=== PATIENT | female | born 1975 | race African-American/Black ===

== ENCOUNTER 2016-08-14 13:33 | Emergency (ER) | payer OTHER ==
[2016-08-14 13:52] VITALS: BP 124/65
[2016-08-14] MEDS ORDERED: IBUPROFEN 800 MG TABLET PO ONE (15:03)
--- NOTE | 2016-08-14 15:08 | ER Document Report ---
ED Fall - General Chief Complaint: Fall Stated Complaint: FALL BACK AND HEAD PAIN Time seen by provider: 15:03 Mode of Arrival: Ambulatory Information source: Patient Notes: 40-year-old female presents to ED for pain in her head neck and back since she fell yesterday. She states she was going down her steps to take her son to school yesterday morning and slipped off of the wet step and fell backwards landing on her back in her head. She denies any loss of consciousness nausea vomiting or altered mental status. She is alert and oriented at this time able to speak in full sentences TRAVEL OUTSIDE OF THE [place] IN LAST 30 DAYS: No - HPI Occurred: Yesterday Where: Home, Outdoors Context: Slipped - Wet steps Associated symptoms: None Location of injury/pain: Back, Head Quality of pain: Achy, Sharp, Throbbing Severity: Moderate Pain Level: 4 - Related data Allergies/Adverse Reactions: No Known Allergies Allergy (Verified 08/14/16 13:49) Past Medical History - General Information source: Patient - Social History Smoking Status: Current Every Day Smoker Cigarette use (# per day): Yes - pack per day Smoking Education Provided: Yes - less than 2 minutes Frequency of alcohol use: None Drug Abuse: None Occupation: works at [employer] with: Family Family History: Arthritis, CAD, CVA, Hyperlipidemia, Hypertension, Malignancy, Thyroid Disfunction Patient has suicidal ideation: No Patient has homicidal ideation: No - Past Medical History Cardiac Medical History: Reports: None Pulmonary Medical History: Reports: None EENT Medical History: Reports: None Neurological Medical History: Reports: None Endocrine Medical History: Reports: None Renal/ Medical History: Reports: Hx Kidney Stones, Hx Ovarian Cysts, Other - Endometriosis Malignancy Medical History: Reports: None GI Medical History: Reports: None Musculoskeltal Medical History: Reports None Skin Medical History: Reports None Psychiatric Medical History: Reports: None Traumatic Medical History: Reports: None Infectious Medical History: Reports: None Past Surgical History: Reports: Hx Cholecystectomy, Hx Hysterectomy, Other - Removal of pilonidal cyst - Immunizations Hx Diphtheria, Pertussis, Tetanus Vaccination: No Review of Systems - Review of Systems Constitutional: No symptoms reported EENT: No symptoms reported Cardiovascular: No symptoms reported Respiratory: No symptoms reported Gastrointestinal: No symptoms reported Genitourinary: No symptoms reported Female Genitourinary: No symptoms reported Musculoskeletal: No symptoms reported Skin: No symptoms reported Hematologic/Lymphatic: No symptoms reported Neurological/Psychological: No symptoms reported -: Yes All other systems reviewed and negative Physical Exam - Vital signs Vitals: Temp Pulse Resp BP Pulse Ox 97.6 F 83 20 124/65 97 08/14/16 13:51 08/14/16 13:51 08/14/16 13:51 08/14/16 13:51 08/14/16 13:51 Interpretation: Normal - General General appearance: Appears well, Alert - HEENT Head: Normocephalic, Atraumatic Eyes: Normal Pupils: PERRL - Respiratory Respiratory status: No respiratory distress Chest status: Nontender Breath sounds: Normal Chest palpation: Normal - Cardiovascular Rhythm: Regular Heart sounds: Normal auscultation Murmur: No - Abdominal Inspection: Normal Distension: No distension Bowel sounds: Normal Tenderness: Nontender Organomegaly: No organomegaly - Back Back: Normal, Tender. No: Deformity/step-off, CVA tenderness, Vertebra tenderness, Scars, Scoliosis, Wounds - Extremities General upper extremity: Normal inspection, Nontender, Normal color, Normal ROM , Normal temperature General lower extremity: Normal inspection, Nontender, Normal color, Normal ROM , Normal temperature, Normal weight bearing. No: Ashley's sign - Neurological Neuro grossly intact: Yes Cognition: Normal Orientation: AAOx4 [employer] Coma Scale Eye Opening: Spontaneous [employer] Coma Scale Verbal: Oriented Mita Coma Scale Motor: Obeys Commands Mita Coma Scale Total: 15 Speech: Normal Motor strength normal: LUE, RUE, LLE, RLE Sensory: Normal - Psychological Associated symptoms: Normal affect, Normal mood - Skin Skin Temperature: Warm Skin Moisture: Dry Skin Color: Normal Course - Re-evaluation Re-evalutation: 08/14/16 16:06 X-rays discussed with the patient and written report given to patient for follow -up with her primary doctor. Patient will be discharged home with prescription for Needles and instructions on ice and heat packs and back exercises. - Vital Signs Vital signs: Temp Pulse Resp BP Pulse Ox 97.6 F 83 20 124/65 97 08/14/16 13:51 08/14/16 13:51 08/14/16 13:51 08/14/16 13:51 08/14/16 13:51 - Diagnostic Test Radiology reviewed: Image reviewed, Reports reviewed Discharge - Discharge Clinical Impression: Fall at home Qualifiers: Encounter type: initial encounter Qualified Code(s): W19.XXXA - Unspecified fall, initial encounter; Y92.099 - Unspecified place in other non-institutional residence as the place of occurrence of the external cause Contusion of back Qualifiers: Encounter type: initial encounter Laterality: unspecified laterality Qualified Code(s): S20.229A - Contusion of unspecified back wall of thorax, initial encounter Condition: Stable Disposition: HOME, SELF-CARE Instructions: Use of [id number] Ibuprofen ([facility]), Stretching Exercises for the Back ([facility]), Exercise Program for the Shoulder ([facility]), Family Physicians / Practices Additional Instructions: HEAD INJURY PRECAUTIONS: At this point, there is no evidence that your head injury is serious. Observation is necessary, however. Take only clear liquids for the first few hours, unless told otherwise by the doctor. If no pain medication was prescribed, you may take acetaminophen according to the directions on the bottle. Do not take any medication that may alter your level of alertness (unless you've discussed it with the doctor first) . Limit activity for the first 24 hours. Bed rest is best. During the first 24 hours, check to see approximately every two to three hours that the patient is easily arousable, responds normally, and can perform common tasks such as walking without difficulty. Contact your doctor or go to the hospital if any of the following things occur: Persistent vomiting, difficulty in arousing the patient, worsening or continued headache, or failure to improve as expected. Head injuries can cause symptoms that persist for a few days or even a few weeks. CONTUSION: Your injury has resulted in a contusion -- a crushing of the deep tissues. No injury to important structures was detected during the physician's exam. Contusions vary in the amount of pain they cause, and in the length of time required for healing. Typically, the area will become bruised, and will remain painful to touch for two or three weeks. However, most patients are back to working and playing within a few days. After the initial period of rest and cold-packs, your symptoms (together with the doctor's recommendations) will determine how rapidly you can get back to full activity. Usually this means "do what feels okay, but don't do things that hurt." If re-examination was recommended, it's important to follow up as instructed. Call the doctor or return any time if pain increases, if swelling becomes severe, if you develop numbness or weakness in an injured extremity, or if any other alarming symptoms occur. LOW BACK PAIN: Three out of every four people will have an episode of disabling back pain during their lifetime. Most commonly the pain is due to straining of the muscles and ligaments in the low back. Usual treatment includes: (1) Rest on a firm surface. Avoid lying on your stomach. (2) Ice pack the painful area. After a few days, gentle heat may be used intermittently to relax the area, or ice packs can be continued. (3) Medication may be needed -- muscle relaxers and antiinflammatory medicines are commonly used. (4) As the back improves, exercises are prescribed to strengthen the back and abdominal muscles. Your doctor will advise you on the proper care for your back at each stage in your recovery. You may be better in a few days -- or healing may take several weeks. If new symptoms of a "herniated disc" (radiation of pain, numbness, or tingling down the back of the leg or weakness in the leg) occur, you should be re-examined. Further testing may be necessary. USE OF TYLENOL (ACETAMINOPHEN): Acetaminophen may be taken for pain relief or fever control. It's much safer than aspirin, offering a wider range of "safe" dosages. It is safe during . Some brand names are Tylenol, Panadol, Datril, Anacin 3, Tempra, and Liquiprin. Acetaminophen can be repeated every four hours. The following are maximum recommended dosages: WEIGHT Dose Drops Elixir Chewable( 80mg) (LBS.) drprs=droppers tsp=teaspoon 6 40 mg 0.4 ml (1/2) 6-11 80 mg 0.8 ml (full) tsp 1 tab 12-16 120 mg 1 1/2 drprs 3/4 tsp 1 1/2 tabs 17-23 160 mg 2 drprs 1 tsp 2 tabs 24-30 240 mg 3 drprs 1 1/2 tsp 3 tabs 30-35 320 mg 2 tsp 4 tabs 36-41 360 mg 2 1/4 tsp 4 1/2 tabs 42-47 400 mg 2 1/2 tsp 5 tabs 48-53 480 mg 3 tsp 6 tabs 54-59 520 mg 3 1/4 tsp 6 1/2 tabs 60-64 560 mg 3 1/2 tsp 7 tabs 65-70 600 mg 3 3/4 tsp 7 1/2 tabs 71-76 640 mg 4 tsp 8 tabs 77-82 720 mg 4 1/2 tsp 9 tabs 83-88 800 mg 5 tsp 10 tabs >89 pounds or adults 650 mg to 900 mg Acetaminophen can be repeated every four hours. Maximum dose not to exceed 4000 mg a day. These maximum recommended dosages are slightly higher than the dosages written on the product container, but these dosages are very safe and below the toxic dosage for acetaminophen. ICE PACKS: Apply ice packs frequently against the painful area. Many different schedules are recommended, such as "20 minutes on, 20 minutes off" or "one hour ice, two hours rest." If you need to work, you may need to go longer between ice treatments. You should plan to have the area ice packed AT LEAST one fourth of the time. The ice should be applied over the wrap, tape, or splint, or over a layer of cloth -- not directly against the skin. Some ice bags have a built-in cloth and can be put directly on the skin. WARM PACKS: After approximately two days, apply gentle heat (such as a heating pad or hot water bottle) for about 20 to 30 minutes about every two hours -- at least four times daily. Warmth and elevation will help you make a more rapid recovery , and will ease the pain considerably. Do not use HOT heat, and never apply heat for longer than 30 minutes. The continuous heat can invisibly damage skin and muscles -- even when no burn is seen on the surface. Damaged muscles can make you MORE sore. ORAL NARCOTIC MEDICATION: You have been given a prescription for pain control. This medication is a narcotic. It's best taken with food, as nausea can result if taken on an empty stomach. Don't operate machinery or drive within six hours of taking this medication. Do not combine this medicine with alcohol, or with any medication which can cause sedation (such as cold tablets or sleeping pills) unless you get permission from the physician. Narcotics tend to cause constipation. If possible, drink plenty of fluids and eat a diet high in fiber and fruits. FOLLOW-UP CARE: If you have been referred to a physician for follow-up care, call the physician s office for an appointment as you were instructed or within the next two days. If you experience worsening or a significant change in your symptoms, notify the physician immediately or return to the Emergency Department at any time for re-evaluation. Prescriptions: Hydrocodone/Acetaminophen [Needles 5-325 mg Tablet] 1 tab PO Q6HP PRN #14 tablet PRN Reason: Cyclobenzaprine HCl [Flexeril 5 mg Tablet] 5 mg PO TID #15 tablet Forms: Smoking Cessation Education, Return to Work
== END 2016-08-14 16:24 | disposition home or self-care (01) ==
LOC: ER 13:33
DX: S20.229A Contusion of unspecified back wall of thorax, initial encounter (principal); W10.9XXA Fall (on) (from) unspecified stairs and steps, initial encounter; Y93.89 Activity, other specified; Y92.009 Unspecified place in unspecified non-institutional (private) residence as the place of occurrence of the external cause; R51 Headache; M54.9 Dorsalgia, unspecified; M54.2 Cervicalgia; F17.210 Nicotine dependence, cigarettes, uncomplicated; Z71.6 Tobacco abuse counseling
CPT/HCPCS: 72082; 99283

== ENCOUNTER 2017-12-07 11:18 | Emergency (ER) | payer OTHER ==
[2017-12-07] MEDS ORDERED: METOCLOPRAMIDE HCL INJ/PF 10 MG/2 ML SDV IV ONE (12:13)
[2017-12-07] MEDS ORDERED: NORMAL SALINE 1000 ML 1,000 ML IV ONE (12:13)
[2017-12-07] MEDS ORDERED: ONDANSETRON 4 MG TAB.RAPDIS PO ONE (12:13)
[2017-12-07] MEDS ORDERED: DIPHENHYDRAMINE HCL 50 MG/ML VIAL IV ONE (12:14)
--- NOTE | 2017-12-07 12:15 | ER Document Report ---
ED Medical Screen (RME) - General Chief Complaint: General Weakness Stated Complaint: WEAKNESS Time Seen by Provider: 12/07/17 12:12 Mode of Arrival: Ambulatory Information source: Patient Notes: This is a 42-year-old female with no significant medical problems who presents to the emergency room with nausea, vomiting, vertigo since this morning. Medicines: None Allergies: None Surgeries: Hysterectomy (for endometriosis). TRAVEL OUTSIDE OF THE [place] IN LAST 30 DAYS: No - Related Data Allergies/Adverse Reactions: No Known Allergies Allergy (Verified 12/07/17 11:19) Past Medical History - Social History Frequency of alcohol use: None Drug Abuse: None Family history: Reviewed & Not Pertinent Renal/ Medical History: Reports: Hx Kidney Stones, Hx Ovarian Cysts. Denies: Hx Peritoneal Dialysis Past Surgical History: Reports: Hx Cholecystectomy, Hx Hysterectomy, Other - Removal of pilonidal cyst - Immunizations Hx Diphtheria, Pertussis, Tetanus Vaccination: No Physical Exam - Vital signs Vitals: Temp Pulse Resp BP Pulse Ox 98.5 F 65 18 142/82 H 100 12/07/17 11:26 12/07/17 11:26 12/07/17 11:26 12/07/17 11:26 12/07/17 11:26 Course - Vital Signs Vital signs: Temp Pulse Resp BP Pulse Ox 98.5 F 65 18 142/82 H 100 12/07/17 11:26 12/07/17 11:26 12/07/17 11:26 12/07/17 11:26 12/07/17 11:26
[2017-12-07 13:03] LABS: ALANINE AMINOTRANSFERASE 20 U/L (9-52); ALBUMIN 4.5 g/dL (3.5-5.0); ALKALINE PHOSPHATASE 74 U/L (38-126); ANION GAP 13 (5-19); ASPARTATE AMINO TRANSFERASE 19 U/L (14-36); BILIRUBIN,DIRECT 0.3 mg/dL (0.0-0.4); BILIRUBIN,TOTAL 0.5 mg/dL (0.2-1.3); BLOOD UREA NITROGEN 9 mg/dL (7-20); CALCIUM 9.8 mg/dL (8.4-10.2); CARBON DIOXIDE 21 mmol/L (22-30); CHLORIDE 111 mmol/L (98-107); GLUCOSE 91 mg/dL (75-110); SODIUM 144.8 mmol/L (137-145)
[2017-12-07 13:04] LABS: ABSOLUTE BASOPHILS # (AUTO) 0.1 10^3/uL (0.0-0.2); ABSOLUTE LYMPHOCYTES (AUTO) 1.2 10^3/uL (0.5-4.7); ABSOLUTE MONOCYTES (AUTO) 0.2 10^3/uL (0.1-1.4); ABSOLUTE NEUT (AUTO) 4.2 10^3/uL (1.7-8.2); HEMATOCRIT 43.8 % (36.0-47.0); MONOCYTES % (AUTO) 3.6 % (3-13); TOTAL CELLS COUNTED % (AUTO) 100 %; WHITE BLOOD COUNT 5.7 10^3/uL (4.0-10.5)
[2017-12-07 13:11] LABS: BASOPHILS % (AUTO) 1.1 % (0-2); EOSINOPHILS % (AUTO) 0.5 % (0-6); HEMOGLOBIN 14.8 g/dL (12.0-15.5); LYMPHOCYTES % (AUTO) 21.5 % (13-45); MEAN CORPUSCULAR HGB CONC 33.8 g/dL (32.0-36.0); MEAN CORPUSCULAR VOLUME 83 fl (80-97); PLATELET COUNT 267 10^3/uL (150-450); RED BLOOD COUNT 5.28 10^6/uL (3.72-5.28); RED CELL DISTRIBUTION WIDTH 13.3 % (11.5-14.0); SEGMENTED NEUTROPHILS % (AUTO) 73.3 % (42-78)
--- NOTE | 2017-12-07 14:39 | ER Document Report ---
ED General - General Chief Complaint: General Weakness Stated Complaint: WEAKNESS Time Seen by Provider: 12/07/17 12:12 Mode of Arrival: Ambulatory TRAVEL OUTSIDE OF THE [place] IN LAST 30 DAYS: No - HPI Patient complains to provider of: Nausea and vomiting Onset: Other - 14-year-old female presents for evaluation of an episode of0 nausea and vomiting this morning. She notes that she was sitting in bed began to feel a little bit uncomfortable lightheaded short of breath at which time she stood up felt tremendous nausea and vomiting. She then had a very loose bowel movement. 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 - Related Data Allergies/Adverse Reactions: No Known Allergies Allergy (Verified 12/07/17 11:19) Past Medical History - General Information source: Patient - Social History Smoking Status: Current Every Day Smoker Frequency of alcohol use: None Drug Abuse: None Family History: Arthritis, CAD, CVA, Hyperlipidemia, Hypertension, Malignancy, Thyroid Disfunction Patient has suicidal ideation: No Patient has homicidal ideation: No Renal/ Medical History: Reports: Hx Kidney Stones, Hx Ovarian Cysts. Denies: Hx Peritoneal Dialysis Past Surgical History: Reports: Hx Cholecystectomy, Hx Hysterectomy, Other - Removal of pilonidal cyst - Immunizations Hx Diphtheria, Pertussis, Tetanus Vaccination: No Review of Systems - Review of Systems -: Yes All other systems reviewed and negative Physical Exam - Vital signs Vitals: Temp Pulse Resp BP Pulse Ox 98.5 F 65 18 142/82 H 100 12/07/17 11:26 12/07/17 11:26 12/07/17 11:26 12/07/17 11:26 12/07/17 11:26 - General General appearance: Appears well In distress: None - HEENT Head: Normocephalic Eyes: Normal Conjunctiva: Normal Cornea: Normal - Respiratory Respiratory status: No respiratory distress Chest status: Nontender Breath sounds: Normal Chest palpation: Normal - Cardiovascular Rhythm: Regular Heart sounds: Normal auscultation Murmur: No - Abdominal Inspection: Normal Distension: No distension - Back Back: Normal - Extremities General upper extremity: Normal inspection General lower extremity: Normal inspection - Neurological Neuro grossly intact: Yes Cognition: Normal Orientation: AAOx4 - Psychological Associated symptoms: Normal affect Course - Re-evaluation Re-evalutation: 12/07/17 19:42 [age]-year-old female presents for evaluation of single episode of emesis as well as some diarrhea. She notes that she had an episode of diarrhea single episode of emesis vomiting or systemic signs of action she now has no complaints says she feels generally well. She has been able to eat and drink since that episode , denies any lightheadedness chest pain systemic signs of infection recent illnesses. Her abdominal examination is entirely benign, she had labs drawn through triage which all are within normal limits. We will do p.o. challenge. Patient was able tolerate p.o. in the emergency department her abdominal examination remained benign. She was given return precautions encouraged follow -up with her primary physician regarding today's visit. At the time of discharge she was well-appearing. - Vital Signs Vital signs: Temp Pulse Resp BP Pulse Ox 97.8 F 63 16 122/61 100 12/07/17 15:05 12/07/17 15:05 12/07/17 15:05 12/07/17 15:05 12/07/17 15:05 - Laboratory Result Diagrams: 12/07/17 12:36 12/07/17 12:36 Laboratory results interpreted by me: 12/07/17 12:36 Chloride 111 H Carbon Dioxide 21 L Creatinine 0.47 L Discharge - Discharge Clinical Impression: Nausea & vomiting Qualifiers: Vomiting type: unspecified Vomiting Intractability: unspecified Qualified Code( s): R11.2 - Nausea with vomiting, unspecified Diarrhea Qualifiers: Diarrhea type: unspecified type Qualified Code(s): R19.7 - Diarrhea, unspecified Condition: Good Disposition: HOME, SELF-CARE Instructions: Diarrhea, Nonspecific ([facility]), Vomiting ([facility]) Prescriptions: Ondansetron [Zofran Odt 4 mg Tablet] 1 - 2 tab PO Q4H PRN #15 tab.rapdis PRN Reason: For Nausea/Vomiting Forms: Elevated Blood Pressure, Special Work Note, Smoking Cessation Education
[2017-12-07 15:10] VITALS: BP 122/61
== END 2017-12-07 15:10 | disposition home or self-care (01) ==
LOC: ER 11:18
DX: R11.2 Nausea with vomiting, unspecified (principal); R19.7 Diarrhea, unspecified; R42 Dizziness and giddiness; R06.02 Shortness of breath; F17.200 Nicotine dependence, unspecified, uncomplicated; Z90.49 Acquired absence of other specified parts of digestive tract
CPT/HCPCS: 99285; 96361; 96374; 96375; 36415; 85025; 80053; J1200; S0119; J2765; J7030

== ENCOUNTER 2018-10-26 08:14 | Emergency (ER) | payer OTHER ==
[2018-10-26 08:19] VITALS: BP 124/67
--- NOTE | 2018-10-26 09:42 | ER Document Report ---
ED General - General Chief Complaint: Arm Pain Stated Complaint: RIGHT ARM PAIN Time Seen by Provider: 10/26/18 08:57 Notes: Pleasant [id number] 43-year-old female with no medical history presents to the emergency department with chief length of distal right upper extremity swelling was a and pain. She said the pain has been present for about 1 month but it started swelling acutely over the last 2 to 3 days. She was concerned for the swelling and sought treatment in the emergency department. It was treated last patient has a family history of blood clots with her father and her paternal grandmother. Patient does not take oral contraceptives but is a smoker. She says that any movement causes pain, it hurts to make a fist, and generally has pain with movement. Brisk cap refill and 1+ radial pulse palpated. There is edema but no redness. No fevers or recent illness, no acute shortness of breath, racing heart or palpitations, chest pain. No other complaints TRAVEL OUTSIDE OF THE [place] IN LAST 30 DAYS: No - Related Data Allergies/Adverse Reactions: No Known Allergies Allergy (Verified 10/26/18 08:16) Past Medical History - Social History Smoking Status: Current Every Day Smoker Chew tobacco use (# tins/day): No Frequency of alcohol use: None Drug Abuse: None Family History: Arthritis, CAD, CVA, Hyperlipidemia, Hypertension, Malignancy, Thyroid Disfunction Patient has suicidal ideation: No Patient has homicidal ideation: No Renal/ Medical History: Reports: Hx Kidney Stones, Hx Ovarian Cysts. Denies: Hx Peritoneal Dialysis Past Surgical History: Reports: Hx Cholecystectomy, Hx Hysterectomy, Other - Removal of pilonidal cyst - Immunizations Hx Diphtheria, Pertussis, Tetanus Vaccination: No Review of Systems - Review of Systems Constitutional: See HPI EENT: No symptoms reported Cardiovascular: See HPI Respiratory: See HPI Gastrointestinal: No symptoms reported Genitourinary: No symptoms reported Female Genitourinary: No symptoms reported Musculoskeletal: See HPI Skin: No symptoms reported Hematologic/Lymphatic: No symptoms reported Neurological/Psychological: No symptoms reported Physical Exam - Vital signs Vitals: Temp Pulse Resp BP Pulse Ox 98.2 F 75 16 124/67 98 10/26/18 08:18 10/26/18 08:18 10/26/18 08:18 10/26/18 08:18 10/26/18 08:18 - Notes Notes: PHYSICAL EXAMINATION: Reviewed vital signs and charting by RN GENERAL: Alert, interacts well. No acute distress. HEAD: Normocephalic, atraumatic. EYES: Pupils equal and round. Extraocular movements intact. ENT: Oral mucosa moist, tongue midline. NECK: Full range of motion. Trachea midline. LUNGS: Clear to auscultation bilaterally, no wheezes, rales, or rhonchi. No respiratory distress. HEART: Regular rate and rhythm. No murmur ABDOMEN: soft, non-tender. No distention. Bowel sounds present EXTREMITIES: Moves all 4 extremities spontaneously. Distal right upper extremity edema with prominent swelling over the brachioradialis that does extend down to the wrist, brisk cap refill, 1+ radial pulse palpated, pain with ship fitter but 5/5 strength PSYCH: Normal affect, normal mood. SKIN: Warm, dry, normal turgor. No rashes or lesions noted. Course - Re-evaluation Re-evalutation: 10/26/18 09:41 Overall well-appearing. She is right-hand dominant and does have distal right upper extremity swelling I initially suspected this to be potentially a lipoma but she does have diffuse swelling from the elbow to the wrist so I am going to give both an ultrasound to assess the soft tissue and a venous Doppler to ensure that she does not have a blood clot because she has risk factors with a prominent family history and she is a smoker. 10/26/18 11:05 Venous Doppler negative for DVT. Still awaiting ultrasound results. Patient is reporting some pain so I ordered Motrin 600 mg once. 10/26/18 11:11 Ultrasound shows what I suspected to be a small lipoma over the brachioradialis region. I explained to patient that the pressure from this can cause pain. Overall everything is reassuring. Patient is stable for discharge at this time. - Vital Signs Vital signs: Temp Pulse Resp BP Pulse Ox 98.2 F 75 16 124/67 98 10/26/18 08:18 10/26/18 08:18 10/26/18 08:18 10/26/18 08:18 10/26/18 08:18 Discharge - Discharge Clinical Impression: Swelling of right upper extremity, Pain of right upper extremity Lipoma of arm Qualifiers: Laterality: right Qualified Code(s): D17.21 - Benign lipomatous neoplasm of skin and subcutaneous tissue of right arm Condition: Good Disposition: HOME, SELF-CARE Additional Instructions: You were seen in the emergency department this morning for pain and swelling of your right arm. All of the studies were very reassuring and you do not have a DVT and ultrasound showed that it is probably a lipoma which is a very small benign fatty tumor. Like we talked about this can cause pressure on the internal structures causing your pain. Please take Motrin 600 mg every 6 hours with food or milk and/or Tylenol 1000 mg every 6 hours for pain as needed. You can also keep your arm elevated, if you continue to have mild swelling like you do you can also get a compression stocking. If you develop worsening swelling, you get swelling of your whole arm, you have acute shortness of breath or chest pain, you are unable to feel your fingers or your arm goes numb, you are unable to use your right arm, you develop high fever, or you have any other concerning symptoms please immediately return to the emergency department.
[2018-10-26] MEDS ORDERED: IBUPROFEN 600 MG TABLET PO ONE (11:05)
--- NOTE | 2018-10-26 11:09 | RADIOLOGY REPORT (SQ) ---
EXAM DESCRIPTION: U/S EXTREMITY NONVASCULAR LTD COMPLETED DATE/TIME: 10/26/2018 10:25 am REASON FOR STUDY: RUE swelling distal extremity COMPARISON: None. TECHNIQUE: Static and real time gonzalez scale ultrasound Doppler spectral analysis, and color Doppler a cquired along the palpable abnormality right upper arm LIMITATIONS: None. FINDINGS: Please note that this study does not constitute an upper extremity venous Doppler exam. In the subcutaneous fat in the area of clinical palpable abnormality, a well-circumscribed area of sl ight increased echogenicity of the fat is present measuring 1.7 x 1.3 x 0.9 cm, likely a small lipoma . No abnormal intrinsic color flow. No significant mass effect. No calcifications. An area of fat necrosis could mimic this appearance. IMPRESSION: Lipoma versus fat necrosis correlates with the palpable abnormality right upper arm. TECHNICAL DOCUMENTATION: JOB ID: [id number] [employer]- All Rights Reserved Reading location - IP/workstation name: [email or web address]
--- NOTE | 2018-10-26 13:16 | XCELERA REPORT ---
[address] [address] Upper Extremity Venous Evaluation Name: BALDEV MIX Age: 43 yrs Gender: Female : 1975 Patient Status: Emergency Patient Location: ER Study Date: 10/26/2018 10:21 AM Procedure: Unilateral duplex scan of the right upper extremity veins was performed, including responses to compression and other maneuvers. Reason For Study: Right distal upper extremity swelling Ordering Physician: VERONICA ROBERSON Performed By: Kyle Monterroso Right Side Venous Evaluation Venous waveform is slurred, ,more prominent than usual. Normal vessel filling wall to wall, compression and augmentation as well as Colour flow down to the forearm veins. Interpretation Summary No duplex evidence of DVT or obstruction in the right upper extremity. : VERONICA ROBERSON > Bernardo Dumont
== END 2018-10-26 11:28 | disposition home or self-care (01) ==
LOC: ER 08:14
DX: M79.601 Pain in right arm (principal); R22.31 Localized swelling, mass and lump, right upper limb; D17.21 Benign lipomatous neoplasm of skin and subcutaneous tissue of right arm; F17.200 Nicotine dependence, unspecified, uncomplicated; Z90.49 Acquired absence of other specified parts of digestive tract; Z90.710 Acquired absence of both cervix and uterus; Z87.442 Personal history of urinary calculi
CPT/HCPCS: 76882; 93971; 99283

== ENCOUNTER 2018-11-07 15:37 | Emergency (ER) | payer OTHER ==
[2018-11-07 15:46] VITALS: BP 129/69
--- NOTE | 2018-11-07 15:55 | ER Document Report ---
ED Medical Screen (RME) - General Chief Complaint: Arm Pain Stated Complaint: RIGHT ARM PAIN Time Seen by Provider: 11/07/18 15:42 Mode of Arrival: Ambulatory Information source: Patient Notes: Patient is an otherwise healthy 43-year-old female presented to the emergency department chief complaint of multiple lumps to her body. Patient reports she was seen here approximately 2 weeks ago for right arm pain and diagnosed with a lipoma. She reports pain and swelling has worsened to this extremity. She denies history of DVTs or PEs. She reports that she has multiple areas that have lumps deep inside of her body. She does not know what this is from. She has just made appointment to establish primary care but they cannot get her in until December. Patient very tearful at the time of my evaluation stating that she is scared and she feels like something is very wrong. Patient denies any chest pain or shortness of breath. Exam: Mild swelling noted to right upper extremity from the elbow down to the wrist, palpable nodule noted to the upper arm. I have greeted and performed a rapid initial assessment of this patient. A comprehensive ED assessment and evaluation of the patient, analysis of test results and completion of the medical decision making process will be conducted by additional ED providers. I have specifically instructed the patient or family members with the patient to immediately return to any nursing staff should anything change in the patient's condition or with their chief complaint. This medical record was dictated with voice recognizing software. There may be grammatical, syntax errors that are unintended. TRAVEL OUTSIDE OF THE [place] IN LAST 30 DAYS: No - Related Data Allergies/Adverse Reactions: No Known Allergies Allergy (Verified 11/07/18 15:39) Past Medical History - Social History Family history: Reviewed & Not Pertinent Renal/ Medical History: Reports: Hx Kidney Stones, Hx Ovarian Cysts. Denies: Hx Peritoneal Dialysis Past Surgical History: Reports: Hx Cholecystectomy, Hx Hysterectomy, Other - Removal of pilonidal cyst - Immunizations Hx Diphtheria, Pertussis, Tetanus Vaccination: No Physical Exam - Vital signs Vitals: Temp Pulse Resp BP Pulse Ox 98.1 F 82 20 129/69 H 98 11/07/18 15:43 11/07/18 15:43 11/07/18 15:43 11/07/18 15:43 11/07/18 15:43 Course - Vital Signs Vital signs: Temp Pulse Resp BP Pulse Ox 98.1 F 82 20 129/69 H 98 11/07/18 15:43 11/07/18 15:43 11/07/18 15:43 11/07/18 15:43 11/07/18 15:43
[2018-11-07 16:46] LABS: ABSOLUTE BASOPHILS # (AUTO) 0.1 10^3/uL (0.0-0.2); ABSOLUTE EOSINOPHILS # (AUTO) 0.1 10^3/uL (0.0-0.6); ABSOLUTE LYMPHOCYTES (AUTO) 2.3 10^3/uL (0.5-4.7); ABSOLUTE MONOCYTES (AUTO) 0.3 10^3/uL (0.1-1.4); ABSOLUTE NEUT (AUTO) 2.6 10^3/uL (1.7-8.2); BASOPHILS % (AUTO) 1.3 % (0-2); HEMATOCRIT 41.1 % (36.0-47.0); HEMOGLOBIN 13.6 g/dL (12.0-15.5); MEAN CORPUSCULAR HEMOGLOBIN 27.4 pg (27.0-33.4); MEAN CORPUSCULAR HGB CONC 33.1 g/dL (32.0-36.0); MEAN CORPUSCULAR VOLUME 83 fl (80-97); MONOCYTES % (AUTO) 5.1 % (3-13); PLATELET COUNT 262 10^3/uL (150-450); RED BLOOD COUNT 4.96 10^6/uL (3.72-5.28); RED CELL DISTRIBUTION WIDTH 13.3 % (11.5-14.0); SEGMENTED NEUTROPHILS % (AUTO) 49.6 % (42-78); TOTAL CELLS COUNTED % (AUTO) 100 %; WHITE BLOOD COUNT 5.3 10^3/uL (4.0-10.5)
[2018-11-07 17:02] LABS: APPEARANCE,URINE CLEAR; BILIRUBIN,URINE NEGATIVE (NEGATIVE); COLOR,URINE YELLOW; GLUCOSE, URINE NEGATIVE (NEGATIVE); KETONES,URINE NEGATIVE (NEGATIVE); LEUKOCYTE ESTERASE,URINE NEGATIVE (NEGATIVE); NITRITE,URINE NEGATIVE (NEGATIVE); PROTEIN,URINE NEGATIVE (NEGATIVE); URINE SPECIFIC GRAVITY 1.027; UROBILINOGEN,URINE NEGATIVE mg/dL (<2.0)
[2018-11-07 17:10] LABS: ALANINE AMINOTRANSFERASE 29 U/L (9-52); ALBUMIN 4.4 g/dL (3.5-5.0); ALKALINE PHOSPHATASE 64 U/L (38-126); ANION GAP 8 (5-19); ASPARTATE AMINO TRANSFERASE 23 U/L (14-36); BILIRUBIN,DIRECT 0.2 mg/dL (0.0-0.4); BILIRUBIN,TOTAL 0.2 mg/dL (0.2-1.3); BLOOD UREA NITROGEN 15 mg/dL (7-20); CALCIUM 9.2 mg/dL (8.4-10.2); CARBON DIOXIDE 25 mmol/L (22-30); CHLORIDE 109 mmol/L (98-107); GLUCOSE 97 mg/dL (75-110); POTASSIUM 3.5 mmol/L (3.6-5.0); SODIUM 141.9 mmol/L (137-145); TOTAL PROTEIN 7.8 g/dL (6.3-8.2)
[2018-11-07] MEDS ORDERED: HYDROCODONE/ACETAMINOPHEN 5-325 MG TABLET PO ONE (19:25)
[2018-11-07] MEDS ORDERED: POTASSIUM CHLORIDE 10 MEQ CAPSULE.ER PO ONE (19:25)
--- NOTE | 2018-11-07 19:31 | ER Document Report ---
HPI - HPI Patient complains to provider of: Tender lumps Time Seen by Provider: 11/07/18 15:42 Onset: Other - Months Onset/Duration: Persistent Quality of pain: Achy Pain Level: 2 Context: Patient complains of tender lumps below the surface of her skin to the right for earm, posterior left thigh and to to her lower back area. Patient denies any fever. Patient complains of tenderness over the lesions. Patient states that nodule to right forearm causes pain when she is at work. Patient is right-hand dominant. Patient was seen here recently for this and had an ultrasound that suspected likely lipoma. Patient is concerned about possible cancer and wanted to be reevaluated. Associated Symptoms: Other - Under lumps under the skin Exacerbated by: Movement Relieved by: Denies Similar symptoms previously: No Recently seen / treated by doctor: Yes - ROS ROS below otherwise negative: Yes Systems Reviewed and Negative: Yes All other systems reviewed and negative - CONSTITUTIONAL Constitutional: DENIES: Fever, Chills - NEURO Neurology: DENIES: Headache, Weakness - RESPIRATORY Respiratory: DENIES: Trouble Breathing, Coughing - GASTROINTESTINAL Gastrointestinal: DENIES: Nausea, Patient vomiting - REPRODUCTIVE Reproductive: DENIES: : - MUSCULOSKELETAL Musculoskeletal: REPORTS: Extremity pain - DERM Skin Color: Normal Notes: Nodular lesions under skin Past Medical History - General Information source: Patient - Social History Smoking Status: Current Every Day Smoker Chew tobacco use (# tins/day): No Frequency of alcohol use: None Drug Abuse: None Occupation: Dietary Lives with: Family Family History: Arthritis, CAD, CVA, Hyperlipidemia, Hypertension, Malignancy, Thyroid Disfunction Patient has suicidal ideation: No Patient has homicidal ideation: No Renal/ Medical History: Reports: Hx Kidney Stones, Hx Ovarian Cysts. Denies: Hx Peritoneal Dialysis Past Surgical History: Reports: Hx Cholecystectomy, Hx Hysterectomy, Other - Removal of pilonidal cyst - Immunizations Hx Diphtheria, Pertussis, Tetanus Vaccination: No Vertical Provider Document - CONSTITUTIONAL Agree With Documented VS: Yes Exam Limitations: No Limitations General Appearance: WD/WN, No Apparent Distress - INFECTION CONTROL TRAVEL OUTSIDE OF THE [place] IN LAST 30 DAYS: No - HEENT HEENT: Atraumatic, Normocephalic - NECK Neck: Normal Inspection - RESPIRATORY Respiratory: Breath Sounds Normal, No Respiratory Distress - CARDIOVASCULAR Cardiovascular: Regular Rate, Regular Rhythm Pulses: Normal: Radial - BACK Back: Normal Inspection - MUSCULOSKELETAL/EXTREMETIES Musculoskeletal/Extremeties: MAEW, FROM, No Edema - NEURO Level of Consciousness: Awake, Alert, Appropriate Motor/Sensory: No Motor Deficit, No Sensory Deficit - DERM Integumentary: Warm, Dry, No Rash Adult Front & Back Diagram: 1 - 1 cm mobile tendern lesion, no overlying erythema 2 - Mobile nodular lesion 3 - Mobile nodular lesion 4 - Mobile nodular lesion Course - Re-evaluation Re-evalutation: 11/07/18 19:28 Patient with multiple 1 cm diameter mobile nodular lesions in the subcutaneous tissue, no overlying erythema or calor. No concern for abscess. Pt evaluated here recently for same and diagnosed with a lipoma. Patient encouraged to follow-up on outpatient basis with surgery for removal. 11/07/18 19:28 - Vital Signs Vital signs: Temp Pulse Resp BP Pulse Ox 98.1 F 82 20 129/69 H 98 11/07/18 15:43 11/07/18 15:43 11/07/18 15:43 11/07/18 15:43 11/07/18 15:43 - Laboratory Result Diagrams: 11/07/18 16:23 11/07/18 16:23 Laboratory results interpreted by me: 11/07/18 16:23 Potassium 3.5 L Chloride 109 H 11/08/18 02:01 Labs- Entire Visit 11/07/18 11/07/18 11/07/18 16:23 16:23 16:23 WBC 5.3 RBC 4.96 Hgb 13.6 Hct 41.1 MCV 83 MCH 27.4 MCHC 33.1 RDW 13.3 Plt Count 262 Seg Neutrophils % 49.6 Lymphocytes % 43.0 Monocytes % 5.1 Eosinophils % 1.0 Basophils % 1.3 Absolute Neutrophils 2.6 Absolute Lymphocytes 2.3 Absolute Monocytes 0.3 Absolute Eosinophils 0.1 Absolute Basophils 0.1 D-Dimer 0.27 Sodium 141.9 Potassium 3.5 L Chloride 109 H Carbon Dioxide 25 Anion Gap 8 BUN 15 Creatinine 0.62 Est GFR ( Amer) > 60 Est GFR (Non-Af Amer) > 60 Glucose 97 Calcium 9.2 Total Bilirubin 0.2 Direct Bilirubin 0.2 Neonat Total Bilirubin Not Reportable Neonat Direct Bilirubin Not Reportable Neonat Indirect Bili Not Reportable AST 23 ALT 29 Alkaline Phosphatase 64 Total Protein 7.8 Albumin 4.4 Urine Color Urine Appearance Urine pH Ur Specific [place] Urine Protein Urine Glucose (UA) Urine Ketones Urine Blood Urine Nitrite Urine Bilirubin Urine Urobilinogen Ur Leukocyte Esterase Urine WBC (Auto) Urine RBC (Auto) Squamous Epi Cells Auto Urine Mucus (Auto) Urine Ascorbic Acid 11/07/18 16:23 WBC RBC Hgb Hct MCV MCH MCHC RDW Plt Count Seg Neutrophils % Lymphocytes % Monocytes % Eosinophils % Basophils % Absolute Neutrophils Absolute Lymphocytes Absolute Monocytes Absolute Eosinophils Absolute Basophils D-Dimer Sodium Potassium Chloride Carbon Dioxide Anion Gap BUN Creatinine Est GFR ( Amer) Est GFR (Non-Af Amer) Glucose Calcium Total Bilirubin Direct Bilirubin Neonat Total Bilirubin Neonat Direct Bilirubin Neonat Indirect Bili AST ALT Alkaline Phosphatase Total Protein Albumin Urine Color YELLOW Urine Appearance CLEAR Urine pH 5.0 Ur Specific [place] 1.027 Urine Protein NEGATIVE Urine Glucose (UA) NEGATIVE Urine Ketones NEGATIVE Urine Blood NEGATIVE Urine Nitrite NEGATIVE Urine Bilirubin NEGATIVE Urine Urobilinogen NEGATIVE Ur Leukocyte Esterase NEGATIVE Urine WBC (Auto) 1 Urine RBC (Auto) 0 Squamous Epi Cells Auto 1 Urine Mucus (Auto) FEW Urine Ascorbic Acid NEGATIVE - Diagnostic Test Radiology reviewed: Reports reviewed - from previous ER visit Discharge - Discharge Clinical Impression: Subcutaneous nodule, Hypokalemia Condition: Stable Disposition: HOME, SELF-CARE Instructions: Growth or Mass, Pending Workup ([facility]), Hypokalemia ([facility]) Additional Instructions: Return immediately for any new or worsening symptoms Followup with your primary care provider, call tomorrow to make a followup appointment Follow-up with a general surgeon for further evaluation and removal. Prescriptions: Naproxen [Naprosyn 250 Nmg Tablet] 1 tab PO BID #14 tablet Forms: Return to Work Referrals: [facility] [Provider Group] - 11/10/18
== END 2018-11-07 19:49 | disposition home or self-care (01) ==
LOC: ER 15:37
DX: R22.2 Localized swelling, mass and lump, trunk (principal); R22.31 Localized swelling, mass and lump, right upper limb; R22.42 Localized swelling, mass and lump, left lower limb; E87.6 Hypokalemia; F17.200 Nicotine dependence, unspecified, uncomplicated; Z87.442 Personal history of urinary calculi; Z90.49 Acquired absence of other specified parts of digestive tract; Z90.710 Acquired absence of both cervix and uterus
CPT/HCPCS: 36415; 80053; 81001; 85025; 85379; 99283

== ENCOUNTER → 2019-01-30 | Outpatient (CLI) | payer OTHER ==
--- NOTE | 2019-01-30 13:59 | WOMENS IMAGING REPORT ---
EXAM DESCRIPTION: BONE DENSITY HIP/SPINE COMPLETED DATE/TIME: 01/30/2019 1:46 pm REASON FOR STUDY: E28.310 SYMPTOMATIC PREMATURE MENOPAUSE Z12.31 ENCNTR SCREEN MAMMOGRAM FOR MALIGN ANT NEOPLASM OF MINNIE E28.310 SYMPTOMATIC PREMATURE MENOPAUSE COMPARISON: None. TECHNIQUE: Dual-Energy X-ray Absorptiometry (DEXA) of the AP Spine and Hip. LIMITATIONS: None. FINDINGS: LUMBAR SPINE: The bone mineral density (BMD) measured from L1-L4 in the AP projection correlates with a T-score of -2.6, which is osteoporosis as defined by the World Health Organization. BMD Change vs Baseline: N/A HIP: The bone mineral density (BMD) measured in the left hip correlates with a T-score of -1.7 in the femo ral neck, which is osteopenia as defined by the World Health Organization. BMD Change vs Baseline: N/A 10 year Fracture Risk Assessment: Major Osteoporotic Fracture: Not available. Hip Fracture: Not available. IMPRESSION: 1. LUMBAR SPINE WHO CLASSIFICATION: Osteoporosis 2. HIP WHO CLASSIFICATION: Osteopenia OVERALL ASSESSMENT: WHO CLASSIFICATION: Osteopenia COMMENT: The World Health Organization defines low BMD as follows: T-score: Normal: Greater than -1.0 Osteopenia: Between -1.0 and -2.5 Osteoporosis: Less than -2.5 without fractures Established osteoporosis: Less than -2.5 with fractures In general, you may wish to consider: Diagnosis Treatment Follow-up DEXA Normal BMD Prevention 2-3 years Osteopenia Prevention/Therapy 1-2 years Osteoporosis Therapy Yearly TECHNICAL DOCUMENTATION: JOB ID: [id number] [employer]- All Rights Reserved Reading location - IP/workstation name: [email or web address]
--- NOTE | 2019-02-02 15:55 | WOMENS IMAGING REPORT ---
EXAM DESCRIPTION: BILAT SCREENING MAMMO W/CAD COMPLETED DATE/TIME: 01/30/2019 1:46 pm REASON FOR STUDY: Z12.31 ENCOUNTER FOR SCREENING MAMMOGRAM FOR MALIGNANT NEOPLASM OF BREAST Z12.31 ENCNTR SCREEN MAMMOGRAM FOR MALIGNANT NEOPLASM OF MINNIE E28.310 SYMPTOMATIC PREMATURE MENOPAUSE COMPARISON: None. EXAM PARAMETERS: Standard craniocaudal and mediolateral oblique views of each breast recorded using digital acquisition. Read with the assistance of CAD. .[facility] - [employer] Package [place] Version 9.2 LIMITATIONS: None. FINDINGS: No suspicious masses, suspicious calcifications or architectural distortion. No areas of c oncern. IMPRESSION: Negative MAMMOGRAM. BIRADS 1 BREAST DENSITY: b. There are scattered areas of fibroglandular density. BIRAD: ASSESSMENT: 1 NEGATIVE RECOMMENDATION: ROUTINE SCREENING COMMENT: The patient has been notified of the results by letter per MQSA requirements. Additional no tification policies are in place for contacting patient with suspicious or incomplete findings. Quality ID #[id number]: The [employer] recommends an annual screening mammogram for women aged 40 years or over. This facility utilizes a reminder system to ensure that all patients receive reminder letters, and/or direct phone calls for appointments. This includes reminders for routine scr eening mammograms, diagnostic mammograms, or other Breast Imaging Interventions when appropriate. Th is patient will be placed in the appropriate reminder system. TECHNICAL DOCUMENTATION: FINDING NUMBER: (1) ASSESSMENT: (1) JOB ID: [id number] [employer] All Rights Reserved Reading location - IP/workstation name: [email or web address]
== END ==
LOC: WI 12:50
PROVIDERS: ATTEND Family Medicine
DX: Z12.31 Encounter for screening mammogram for malignant neoplasm of breast (principal); E28.310 Symptomatic premature menopause; M85.80 Other specified disorders of bone density and structure, unspecified site
CPT/HCPCS: 77067; 77080

== ENCOUNTER 2019-04-19 10:36 | Emergency (ER) | payer OTHER ==
[2019-04-19] MEDS ORDERED: OXYCODONE HCL IR 5 MG TABLET PO ONE (10:51)
--- NOTE | 2019-04-19 10:53 | ER Document Report ---
ED Medical Screen (RME) - General Stated Complaint: POSSIBLE ABSCESS LEFT BREAST Time Seen by Provider: 04/19/19 10:49 Primary Care Provider: TIMOTHY HUNTER MD [Primary Care Provider] - Follow up as needed TRAVEL OUTSIDE OF THE [place] IN LAST 30 DAYS: No - HPI Notes: 04/19/19 10:51 Patient is a 43-year-old female who presents complaining of possible abscess to the left breast that is been present the past 3 days to an area where there has been a bump for the past year. Denies drug allergies. No fever. I have treated and performed a rapid initial assessment of this patient. A comprehensive ED assessment and evaluation of the patient, analysis of test results and completion of medical decision making process will be conducted by additional ED providers. PHYSICAL EXAMINATION: GENERAL: Well-appearing, well-nourished and in no acute distress. A&Ox4. Answers questions appropriately. Skin: there is an indurated, fluctuant appearing area to the left breast which patient would not allow me to thoroughly evaluate in triage as she kept grabbing my arm and cutting my eval short. I will give pain meds and have her seen by main side. - Related Data Allergies/Adverse Reactions: No Known Allergies Allergy (Verified 04/19/19 10:50) Past Medical History - Social History Family history: Reviewed & Not Pertinent Renal/ Medical History: Reports: Hx Kidney Stones, Hx Ovarian Cysts. Denies: Hx Peritoneal Dialysis Past Surgical History: Reports: Hx Cholecystectomy, Hx Hysterectomy, Other - Removal of pilonidal cyst - Immunizations Hx Diphtheria, Pertussis, Tetanus Vaccination: No Physical Exam - Vital signs Vitals: Temp Pulse Resp BP Pulse Ox 97.8 F 78 14 109/70 99 04/19/19 10:42 04/19/19 10:42 04/19/19 10:42 04/19/19 10:42 04/19/19 10:42 Course - Vital Signs Vital signs: Temp Pulse Resp BP Pulse Ox 97.8 F 78 14 109/70 99 04/19/19 10:42 04/19/19 10:42 04/19/19 10:42 04/19/19 10:42 04/19/19 10:42 Doctor's Discharge - Discharge Referrals: TIMOTHY HUNTER MD [Primary Care Provider] - Follow up as needed
[2019-04-19] MEDS ORDERED: LIDOCAINE 1% INJ-PF (10 MG/ML) 30 ML SDV INJ ONE (11:33)
--- NOTE | 2019-04-19 11:35 | ER Document Report ---
ED General - General Chief Complaint: Abscess Stated Complaint: POSSIBLE ABSCESS LEFT BREAST Time Seen by Provider: 04/19/19 10:49 Primary Care Provider: TIMOTHY HUNTER MD [Primary Care Provider] - Follow up as needed Notes: HPI: 43-year-old female who presents today with a lesion starting on 4 days ago to the middle aspect of her left breast. She states she had a similar lesion around a year ago that resolved with warm compresses. She states that this is painful. She denies any fevers or vomiting. History of an abscess x1 in the past. She denies being a diabetic. Tetanus is up-to-date. ROS: See HPI All other review of systems reviewed and otherwise negative Reviewed vital signs and nursing note as charted by RN. PHYSICAL EXAM: CONSTITUTIONAL: Alert and oriented and responds appropriately to questions. Well-appearing; well-nourished ENT: No intraoral lesions present RESP: Normal chest excursion without splinting or tachypnea; patient has a tender fluctuant erythematous area to the left medial breast consistent with an abscess. No nipple discharge or lymphadenopathy appreciated TRAVEL OUTSIDE OF THE [place] IN LAST 30 DAYS: No - Related Data Allergies/Adverse Reactions: No Known Allergies Allergy (Verified 04/19/19 10:50) Past Medical History - Social History Smoking Status: Current Every Day Smoker Chew tobacco use (# tins/day): No Frequency of alcohol use: None Drug Abuse: Marijuana Family History: Arthritis, CAD, CVA, Hyperlipidemia, Hypertension, Malignancy, Thyroid Disfunction Patient has suicidal ideation: No Patient has homicidal ideation: No Renal/ Medical History: Reports: Hx Kidney Stones, Hx Ovarian Cysts. Denies: Hx Peritoneal Dialysis Past Surgical History: Reports: Hx Cholecystectomy, Hx Hysterectomy, Other - Removal of pilonidal cyst - Immunizations Hx Diphtheria, Pertussis, Tetanus Vaccination: No Physical Exam - Vital signs Vitals: Temp Pulse Resp BP Pulse Ox 97.8 F 78 14 109/70 99 04/19/19 10:42 04/19/19 10:42 04/19/19 10:42 04/19/19 10:42 04/19/19 10:42 Course - Re-evaluation Re-evalutation: 04/19/19 11:35 Given the above history and physical we will perform an Accu-Chek in order supplies for bedside incision and drainage. I am concerned about the possibility of an abscess. 04/19/19 12:34 Abscess I&D was performed with good results. Packing has been placed. Antibiotics will be started. Patient is status post hysterectomy. Patient will be discharged home with strict return precautions. - Vital Signs Vital signs: Temp Pulse Resp BP Pulse Ox 97.8 F 78 14 109/70 99 04/19/19 10:42 04/19/19 10:42 04/19/19 10:42 04/19/19 10:42 04/19/19 10:42 Procedures - Incision and Drainage Left Chest Anesthetic type: 1% Lidocaine Blade size: 11 I&D procedure: Chlorprep applied Incision Method: Incision made by scalpel Notes: 04/19/19 12:35 Deloculated and packed with quarter inch iodoform gauze Discharge - Discharge Clinical Impression: Breast abscess of female Condition: Good Disposition: HOME, SELF-CARE Instructions: Trimethoprim-Sulfa ([facility]), Post Incision and Drainage, Abscess ([facility]) Additional Instructions: Come back immediately with any increased pain, swelling, redness, fever, or any other acute problems. You can have the packing removed in 2 days as discussed. Please follow-up with your primary care physician for further assessment. Take the antibiotics as prescribed. Prescriptions: Sulfamethoxazole/Trimethoprim [Bactrim Ds Tablet] 1 each PO BID #20 tablet Hydrocodone/Acetaminophen [[place] 5-325 Tablet] 1 each PO Q6H #12 tablet Referrals: TIMOTHY HUNTER MD [Primary Care Provider] - Follow up as needed
[2019-04-19] MEDS ORDERED: SULFAMETHOXAZOLE/TRIMETHOPRIM 800-160 MG TABLET PO ONE (12:34)
[2019-04-19 12:49] VITALS: BP 128/67
== END 2019-04-19 12:59 | disposition home or self-care (01) ==
LOC: ER 10:36
DX: N61.1 Abscess of the breast and nipple (principal); F17.200 Nicotine dependence, unspecified, uncomplicated; Z87.442 Personal history of urinary calculi; Z90.49 Acquired absence of other specified parts of digestive tract; Z90.710 Acquired absence of both cervix and uterus
CPT/HCPCS: 99283; 82962; 10060; A6266; J3490

== ENCOUNTER 2019-04-21 10:00 | Emergency (ER) | payer OTHER ==
--- NOTE | 2019-04-21 10:43 | ER Document Report ---
ED Medical Screen (RME) - General Chief Complaint: Wound Recheck Stated Complaint: WOUND CHECK Time Seen by Provider: 04/21/19 10:40 Primary Care Provider: TIMOTHY HUNTER MD [Primary Care Provider] - Follow up as needed Mode of Arrival: Ambulatory Information source: Patient Notes: Patient presents with recheck for left breast abscess that was drained on April 19. Reports she still feeling some tingling pain to the area. Denies fever vomiting diarrhea. Reports she still taking medications as prescribed. She also took ibuprofen. I have greeted and performed a rapid initial assessment of this patient. A comprehensive ED assessment and evaluation of the patient, analysis of test results and completion of the medical decision making process will be conducted by additional ED providers. TRAVEL OUTSIDE OF THE [place] IN LAST 30 DAYS: No - Related Data Allergies/Adverse Reactions: No Known Allergies Allergy (Verified 04/19/19 10:50) Past Medical History - Social History Family history: Reviewed & Not Pertinent Renal/ Medical History: Reports: Hx Kidney Stones, Hx Ovarian Cysts. Denies: Hx Peritoneal Dialysis Past Surgical History: Reports: Hx Cholecystectomy, Hx Hysterectomy, Other - Removal of pilonidal cyst - Immunizations Hx Diphtheria, Pertussis, Tetanus Vaccination: No Physical Exam - Vital signs Vitals: Temp Pulse Resp BP Pulse Ox 98.2 F 74 16 128/75 H 97 04/21/19 10:28 04/21/19 10:28 04/21/19 10:28 04/21/19 10:28 04/21/19 10:28 Course - Vital Signs Vital signs: Temp Pulse Resp BP Pulse Ox 98.2 F 74 16 128/75 H 97 04/21/19 10:28 04/21/19 10:28 04/21/19 10:28 04/21/19 10:28 04/21/19 10:28 Doctor's Discharge - Discharge Referrals: TIMOTHY HUNTER MD [Primary Care Provider] - Follow up as needed
--- NOTE | 2019-04-21 11:19 | ER Document Report ---
ED Wound - General Chief Complaint: wound check Stated Complaint: WOUND CHECK Time Seen by Provider: 04/21/19 10:40 Primary Care Provider: TIMOTHY HUNTER MD [Primary Care Provider] - Follow up as needed Mode of Arrival: Ambulatory Information source: Patient TRAVEL OUTSIDE OF THE [place] IN LAST 30 DAYS: No - HPI Patient complains to provider of: Other Notes: Note patient is a 43-year-old who had an I&D of her left breast abscess was placed on antibiotics she believes is Bactrim twice a day which she has been taking and also given oxycodone for pain and therefore came in for a wound check in 2 days. She denies any complaints. - Related Data Allergies/Adverse Reactions: No Known Allergies Allergy (Verified 04/19/19 10:50) Past Medical History - General Information source: Patient - Social History Smoking Status: Current Every Day Smoker Chew tobacco use (# tins/day): No Frequency of alcohol use: None Drug Abuse: Marijuana Family History: Arthritis, CAD, CVA, Hyperlipidemia, Hypertension, Malignancy, Thyroid Disfunction Patient has suicidal ideation: No Patient has homicidal ideation: No Renal/ Medical History: Reports: Hx Kidney Stones, Hx Ovarian Cysts. Denies: Hx Peritoneal Dialysis Past Surgical History: Reports: Hx Cholecystectomy, Hx Hysterectomy, Other - Removal of pilonidal cyst - Immunizations Hx Diphtheria, Pertussis, Tetanus Vaccination: No Review of Systems - Review of Systems Constitutional: denies: No symptoms reported, See HPI, Chills, Diaphoresis, Fever, Malaise, Weakness, Other, Weight gain, Weight loss, Recent illness Cardiovascular: denies: No symptoms reported, See HPI, Chest pain, Palpitations, Heart racing, Orthopnea, Dyspnea, Syncope, Dizziness, Lightheaded, Edema, Other, Paroxysmal Nocturnal Dysp Respiratory: denies: No symptoms reported, See HPI, Cough, Hurts to breathe, Hemoptysis, Short of breath, Sputum, Stridor, Wheezing, Other Gastrointestinal: denies: No symptoms reported, See HPI, Abdomen distended, Abdominal pain, Diarrhea, Nausea, Vomiting, Constipation, Blood streaked bowels, Poor appetite, Poor fluid intake, Blood in vomit, Black stools, Rectal bleeding, Last bowel movement, Fecal incontinence, Other Genitourinary: denies: No symptoms reported, See HPI, Burning, Dysuria, Discharge, Frequency, Flank pain, Hematuria, Incontinence, Pain, Urgency, Retention, Other Musculoskeletal: denies: No symptoms reported, See HPI, Back pain, Gout, Joint pain, Joint swelling, Muscle pain, Muscle stiffness, Neck pain, Deformity, Leg swelling, Ankle swelling, Other -: Yes All other systems reviewed and negative Physical Exam - Vital signs Vitals: Temp Pulse Resp BP Pulse Ox 98.2 F 74 16 128/75 H 97 04/21/19 10:28 04/21/19 10:28 04/21/19 10:28 04/21/19 10:28 04/21/19 10:28 Notes: Exam with less of left breast with nurse chaperoning shows a healing left breast abscess wick and packing removed no drainage erythema around the area mild pain to palpation. Course - Vital Signs Vital signs: Temp Pulse Resp BP Pulse Ox 98.2 F 74 16 128/75 H 97 04/21/19 10:28 04/21/19 10:28 04/21/19 10:28 04/21/19 10:28 04/21/19 10:28 Discharge - Discharge Clinical Impression: Wound check, abscess, Breast abscess of female Condition: Good Disposition: HOME, SELF-CARE Additional Instructions: Continue antibiotics until you finish the course and pain medicine as needed return if increased swelling redness fever or condition worsens Forms: Return to Work Referrals: TIMOTHY HUNTER MD [Primary Care Provider] - Follow up as needed
[2019-04-21 11:44] VITALS: BP 115/70
== END 2019-04-21 11:43 | disposition home or self-care (01) ==
LOC: ER 10:00
DX: Z48.01 Encounter for change or removal of surgical wound dressing (principal); N61.1 Abscess of the breast and nipple; F17.200 Nicotine dependence, unspecified, uncomplicated; Z98.890 Other specified postprocedural states
CPT/HCPCS: 99282

== ENCOUNTER 2019-09-15 11:38 | Emergency (ER) | payer OTHER ==
[2019-09-15 11:43] VITALS: BP 128/83
--- NOTE | 2019-09-15 11:57 | ER Document Report ---
ED Medical Screen (RME) - General Chief Complaint: Back Pain Stated Complaint: LOWER BACK PAIN Time Seen by Provider: 09/15/19 11:54 Primary Care Provider: TIMOTHY HUNTER MD [Primary Care Provider] - Follow up as needed Mode of Arrival: Ambulatory Information source: Patient Notes: 44-year-old female presented to ED for complaint of left flank pain that is been constant with sharp spikes. No urinary symptoms no nausea vomiting. She does have a history of previous kidney stones 7 years ago. She states she took 800 of Motrin and 2 Tylenol last night with no relief. She does have a history of hysterectomy diverticulitis pilonidal cyst and cholecystectomy. She does smoke a pack a day and does smoke some marijuana. She is alert oriented respirations regular and unlabored speaking in full sentences walks with even steady gait. I have greeted and performed a rapid initial assessment of this patient. A comprehensive ED assessment and evaluation of the patient, analysis of test results and completion of medical decision making process will be conducted by an additional ED providers. TRAVEL OUTSIDE OF THE [place] IN LAST 30 DAYS: No - Related Data Allergies/Adverse Reactions: No Known Allergies Allergy (Verified 04/19/19 10:50) Past Medical History - Social History Family history: Reviewed & Not Pertinent Renal/ Medical History: Reports: Hx Kidney Stones, Hx Ovarian Cysts. Denies: Hx Peritoneal Dialysis Past Surgical History: Reports: Hx Cholecystectomy, Hx Hysterectomy, Other - Removal of pilonidal cyst - Immunizations Hx Diphtheria, Pertussis, Tetanus Vaccination: No Physical Exam - Vital signs Vitals: Temp Pulse Resp BP Pulse Ox 98.6 F 84 14 128/83 H 99 09/15/19 11:41 09/15/19 11:41 09/15/19 11:41 09/15/19 11:41 09/15/19 11:41 Course - Vital Signs Vital signs: Temp Pulse Resp BP Pulse Ox 98.6 F 84 14 128/83 H 99 09/15/19 11:41 09/15/19 11:41 09/15/19 11:41 09/15/19 11:41 09/15/19 11:41 Doctor's Discharge - Discharge Referrals: TIMOTHY HUNTER MD [Primary Care Provider] - Follow up as needed
[2019-09-15] MEDS ORDERED: NORMAL SALINE 1000 ML 1,000 ML IV ONE (11:58)
[2019-09-15] MEDS ORDERED: KETOROLAC TROMETHAMINE INJ/PF 30 MG/1 ML SDV IV ONE (11:58)
--- NOTE | 2019-09-15 12:22 | RADIOLOGY REPORT (SQ) ---
EXAM DESCRIPTION: CT ABD/PELVIS NO ORAL OR IV IMAGES COMPLETED DATE/TIME: 09/15/2019 12:06 pm REASON FOR STUDY: Flank pain COMPARISON: None. TECHNIQUE: CT scan of the abdomen and pelvis performed without intravenous or oral contrast. Images reviewed with lung, soft tissue, and bone windows. Reconstructed coronal and sagittal MPR images revi ewed. All images stored on PACS. All CT scanners at this facility use dose modulation, iterative reconstruction, and/or weight based d osing when appropriate to reduce radiation dose to as low as reasonably achievable (ALARA). [facility]: Dose Right [facility]: CareDose [facility]: Dose Right [facility]: Teradose 4D [facility]: Smart Social Moov RADIATION DOSE: CT Rad equipment meets quality standard of care and radiation dose reduction techniq ues were employed. CTDIvol: 9.7 mGy. DLP: 524 mGy-cm.mGy. LIMITATIONS: None. FINDINGS: LOWER CHEST: No significant findings. No nodules or infiltrates. NON-CONTRASTED LIVER, SPLEEN, ADRENALS: Evaluation limited by lack of IV contrast. No identified sign ificant masses. PANCREAS: No masses. No peripancreatic inflammatory changes. GALLBLADDER: Surgically absent. RIGHT KIDNEY AND URETER: No suspicious masses. Assessment limited by lack of IV contrast. No signif icant calcifications. No hydronephrosis or hydroureter. LEFT KIDNEY AND URETER: No suspicious masses. Assessment limited by lack of IV contrast. No signifi cant calcifications. No hydronephrosis or hydroureter. AORTA AND RETROPERITONEUM: No aneurysm. No retroperitoneal masses or adenopathy. BOWEL AND PERITONEAL CAVITY: No obvious masses or inflammatory changes. No free fluid. APPENDIX: Not identified. PELVIS, BLADDER, AND ABDOMINAL WALL:No abnormal masses. No free fluid. Bladder normal. BONES: No significant findings. OTHER: No other significant finding. IMPRESSION: NO SIGNIFICANT OR ACUTE PROCESS IN THE ABDOMEN OR PELVIS. COMMENT: Quality ID # [id number]: Final reports with documentation of one or more dose reduction techniques (e.g., Automated exposure control, adjustment of the mA and/or kV according to patient size, use of iterative reconstruction technique) TECHNICAL DOCUMENTATION: JOB ID: [id number] 2010 [employer]- All Rights Reserved Reading location - IP/workstation name: [email or web address]
--- NOTE | 2019-09-15 12:37 | ER Document Report ---
ED GI/ - General Chief Complaint: Flank Pain Stated Complaint: LOWER BACK PAIN Time Seen by Provider: 09/15/19 11:54 Primary Care Provider: TIMOTHY HUNTER MD [Primary Care Provider] - Follow up in 3-5 days Mode of Arrival: Ambulatory Notes: Patient is a 44-year-old female who presents to the emergency department with a chief complaint of left lower back pain. Patient states that her pain started 2 days ago. Patient describes her pain as a constant, sharp, stabbing pain. When moving, the patient states that pain gets worse. Patient has a history of kidney stones in the past. Denies any hematuria. She does not take any medications on a regular basis. Denies any strenuous exercise, abdominal pain, vaginal discharge, dysuria. Denies history of drug use. Denies any paresthesias. TRAVEL OUTSIDE OF THE [place] IN LAST 30 DAYS: No - Related Data Allergies/Adverse Reactions: No Known Allergies Allergy (Verified 04/19/19 10:50) Home Medications: denies Past Medical History - General Information source: Patient - Social History Smoking Status: Current Every Day Smoker Chew tobacco use (# tins/day): No Frequency of alcohol use: None Drug Abuse: None Family History: Arthritis, CAD, CVA, Hyperlipidemia, Hypertension, Malignancy, Thyroid Disfunction Patient has homicidal ideation: No Renal/ Medical History: Reports: Hx Kidney Stones, Hx Ovarian Cysts. Denies: Hx Peritoneal Dialysis Past Surgical History: Reports: Hx Cholecystectomy, Hx Hysterectomy, Other - Removal of pilonidal cyst - Immunizations Hx Diphtheria, Pertussis, Tetanus Vaccination: No Review of Systems - Review of Systems Notes: REVIEW OF SYSTEMS: CONSTITUTIONAL : Denies recent illness. Denies recent unintentional weight loss. Denies fever, chills, or sweats. EENT: Denies eye, ear, throat, or mouth pain, discharge, or symptoms. Denies nasal or sinus congestion. CARDIOVASCULAR: Denies chest pain. RESPIRATORY: Denies shortness of breath, cough, congestion, difficulty breathing, or wheezing. GASTROINTESTINAL: Denies nausea, vomiting, and diarrhea. Denies abdominal pain. Denies constipation. GENITOURINARY: Denies difficulty urinating, burning, blood in urine, urgency or frequency. MUSCULOSKELETAL: See HPI. Denies joint pain or swelling. SKIN: Denies rash, itchiness, or lesions HEMATOLOGIC : Denies easy bruising or bleeding. LYMPHATIC: Denies swollen, painful, enlarged glands. NEUROLOGICAL: Denies no numbness or tingling denies weakness. Denies headache. Denies altered mental status. Denies alteration in speech. PSYCHIATRIC: Denies stress, anxiety, alteration in sleep patterns, or depress ion. All other systems reviewed and negative. Physical Exam - Vital signs Vitals: Temp Pulse Resp BP Pulse Ox 98.6 F 84 14 128/83 H 99 09/15/19 11:41 09/15/19 11:41 09/15/19 11:41 09/15/19 11:41 09/15/19 11:41 - Notes Notes: PHYSICAL EXAMINATION: GENERAL: Appears well, healthy, well-nourished, no acute distress. HEAD: Normocephalic, atraumatic. EYES: PERRL, conjunctiva normal, all extraocular movements intact, sclera nonicteric ENT: Moist mucous membranes. NECK: Supple, no noticeable swelling, redness, rash. Normal range of motion. LUNGS: Equal breath sounds bilaterally and clear to auscultation. No wheezes rales or rhonchi. CARDIOVASCULAR: S1-S2, regular rate, regular rhythm. Radial pulses 2+, normal. ABDOMEN: Normoactive bowel sounds. Soft, nontender, no guarding, no rebound tenderness, and no masses palpated. EXTREMITIES: Normal strength and range of motion, no pitting or edema. No cyanosis. NEUROLOGICAL: Moves all extremities upon command. Strength 5/5 in all extremities. PSYCH: Normal mood, normal affect. SKIN: Warm, dry. No rash, lesions, ulcerations noted. Normal skin turgor. BACK: Tenderness upon palpation to left lower back. Course - Re-evaluation Re-evalutation: 09/15/19 15:01 Hematology is unremarkable. No anemia or leukocytosis noted. Chemistries are also unremarkable. Urinalysis is negative. CT of the abdomen pelvis does not show any acute findings. Of the very low suspicion for appendicitis, pyelonephritis, bowel obstruction, or any life-threatening etiology at this time. Patient most likely has musculoskeletal low back pain. We will start her on Robaxin. Follow-up precautions were given. Verbal discharge instructions were given to the patient. They verbalized understanding. They are stable for discharge. - Vital Signs Vital signs: Temp Pulse Resp BP Pulse Ox 98.6 F 84 14 128/83 H 99 09/15/19 11:52 09/15/19 11:41 09/15/19 11:41 09/15/19 11:41 09/15/19 11:41 - Laboratory Result Diagrams: 09/15/19 12:38 09/15/19 12:38 Laboratory results interpreted by me: 09/15/19 09/15/19 12:38 12:38 Lymph % (Auto) 50.5 H Seg Neutrophils % 41.7 L Chloride 109 H Creatinine 0.42 L Discharge - Discharge Clinical Impression: Left low back pain Qualifiers: Chronicity: acute Sciatica presence: without sciatica Qualified Code(s): M54.5 - Low back pain Condition: Stable Disposition: HOME, SELF-CARE Additional Instructions: You were seen today in the emergency department for back pain. Your back pain is most consistent with muscle pain. You may take ibuprofen 600 mg and acetaminophen 1000 mg every 6 hours as needed for the pain. You can also take Robaxin to help with muscle cramping. You can use the lidocaine patches as needed.. If you develop a fever greater than 100.4 F, lose bowel or bladder function, are unable to walk, or have any symptoms that are worrisome to you, please return to the emergency department. Ask your primary care provider for a referral for physical therapy.. Prescriptions: Lidocaine [Lidoderm 5% (700 mg) Transdermal Patch] 1 patch TP DAILY PRN #10 adh..patch PRN Reason: Methocarbamol [Robaxin 500 mg Tablet] 1,000 mg PO Q6 PRN #30 tablet PRN Reason: Forms: Return to Work Referrals: TIMOTHY HUNTER MD [Primary Care Provider] - Follow up in 3-5 days
[2019-09-15 12:47] LABS: ABSOLUTE BASOPHILS # (AUTO) 0.1 10^3/uL (0.0-0.2); ABSOLUTE EOSINOPHILS # (AUTO) 0.1 10^3/uL (0.0-0.6); ABSOLUTE LYMPHOCYTES (AUTO) 2.1 10^3/uL (0.5-4.7); ABSOLUTE MONOCYTES (AUTO) 0.2 10^3/uL (0.1-1.4); ABSOLUTE NEUT (AUTO) 1.7 10^3/uL (1.7-8.2); BASOPHILS % (AUTO) 1.3 % (0-2); EOSINOPHILS % (AUTO) 1.3 % (0-6); HEMOGLOBIN 14.4 g/dL (12.0-15.5); LYMPHOCYTES % (AUTO) 50.5 % (13-45); MEAN CORPUSCULAR HEMOGLOBIN 28.2 pg (27.0-33.4); MEAN CORPUSCULAR HGB CONC 34.3 g/dL (32.0-36.0); MEAN CORPUSCULAR VOLUME 82 fl (80-97); MONOCYTES % (AUTO) 5.2 % (3-13); PLATELET COUNT 254 10^3/uL (150-450); RED BLOOD COUNT 5.11 10^6/uL (3.72-5.28); RED CELL DISTRIBUTION WIDTH 13.4 % (11.5-14.0); SEGMENTED NEUTROPHILS % (AUTO) 41.7 % (42-78); TOTAL CELLS COUNTED % (AUTO) 100 %; WHITE BLOOD COUNT 4.1 10^3/uL (4.0-10.5)
[2019-09-15 13:09] LABS: ALBUMIN 4.2 g/dL (3.5-5.0); ALKALINE PHOSPHATASE 69 U/L (38-126); ANION GAP 8 (5-19); ASPARTATE AMINO TRANSFERASE 17 U/L (14-36); BILIRUBIN,TOTAL 0.4 mg/dL (0.2-1.3); BLOOD UREA NITROGEN 9 mg/dL (7-20); CALCIUM 9.3 mg/dL (8.4-10.2); CARBON DIOXIDE 23 mmol/L (22-30); CHLORIDE 109 mmol/L (98-107); GLUCOSE 100 mg/dL (75-110); TOTAL PROTEIN 7.5 g/dL (6.3-8.2)
[2019-09-15] MEDS ORDERED: MORPHINE SULFATE 10 MG/ML INJ IV ONE (13:49)
[2019-09-15 14:12] LABS: APPEARANCE,URINE CLEAR; BILIRUBIN,URINE NEGATIVE (NEGATIVE); COLOR,URINE YELLOW; GLUCOSE, URINE NEGATIVE (NEGATIVE); KETONES,URINE NEGATIVE (NEGATIVE); LEUKOCYTE ESTERASE,URINE NEGATIVE (NEGATIVE); NITRITE,URINE NEGATIVE (NEGATIVE); PROTEIN,URINE NEGATIVE (NEGATIVE); URINE SPECIFIC GRAVITY 1.013; UROBILINOGEN,URINE NEGATIVE mg/dL (<2.0)
== END 2019-09-15 15:13 | disposition home or self-care (01) ==
LOC: ER 11:38
DX: M54.5 Low back pain (principal); R10.9 Unspecified abdominal pain; F17.200 Nicotine dependence, unspecified, uncomplicated
CPT/HCPCS: 99284; 96374; 96375; 36415; 85025; 80053; 81001; 74176; J1885; J2270; J7030; 96361

== ENCOUNTER 2019-11-05 09:40 | Emergency (ER) | payer OTHER ==
[2019-11-05 10:26] LABS: ABSOLUTE BASOPHILS # (AUTO) 0.1 10^3/uL (0.0-0.2); ABSOLUTE EOSINOPHILS # (AUTO) 0.1 10^3/uL (0.0-0.6); ABSOLUTE LYMPHOCYTES (AUTO) 2.2 10^3/uL (0.5-4.7); ABSOLUTE MONOCYTES (AUTO) 0.4 10^3/uL (0.1-1.4); ABSOLUTE NEUT (AUTO) 2.5 10^3/uL (1.7-8.2); BASOPHILS % (AUTO) 1.2 % (0-2); EOSINOPHILS % (AUTO) 1.6 % (0-6); HEMATOCRIT 39.2 % (36.0-47.0); HEMOGLOBIN 13.3 g/dL (12.0-15.5); LYMPHOCYTES % (AUTO) 42.3 % (13-45); MEAN CORPUSCULAR VOLUME 83 fl (80-97); MONOCYTES % (AUTO) 8.1 % (3-13); PLATELET COUNT 251 10^3/uL (150-450); RED BLOOD COUNT 4.75 10^6/uL (3.72-5.28); RED CELL DISTRIBUTION WIDTH 13.5 % (11.5-14.0); SEGMENTED NEUTROPHILS % (AUTO) 46.8 % (42-78); TOTAL CELLS COUNTED % (AUTO) 100 %; WHITE BLOOD COUNT 5.3 10^3/uL (4.0-10.5)
--- NOTE | 2019-11-05 10:43 | RADIOLOGY REPORT (SQ) ---
EXAM DESCRIPTION: CHEST 2 VIEWS IMAGES COMPLETED DATE/TIME: 11/05/2019 10:35 am REASON FOR STUDY: chest pain COMPARISON: 11/29/2015. EXAM PARAMETERS: NUMBER OF VIEWS: two views TECHNIQUE: Digital Frontal and Lateral radiographic views of the chest acquired. RADIATION DOSE: NA LIMITATIONS: none FINDINGS: LUNGS AND PLEURA: No opacities, masses or pneumothorax. No pleural effusion. MEDIASTINUM AND HILAR STRUCTURES: No masses or contour abnormalities. HEART AND VASCULAR STRUCTURES: Heart normal size. No evidence for failure. BONES: No acute findings. HARDWARE: None in the chest. Clips in the upper abdomen. OTHER: No other significant finding. IMPRESSION: NO ACUTE RADIOGRAPHIC FINDING IN THE CHEST. TECHNICAL DOCUMENTATION: JOB ID: [id number] 2010 [employer]- All Rights Reserved Reading location - IP/workstation name: [email or web address]
[2019-11-05 10:51] LABS: ALBUMIN 4.1 g/dL (3.5-5.0); ALKALINE PHOSPHATASE 74 U/L (38-126); ANION GAP 7 (5-19); ASPARTATE AMINO TRANSFERASE 17 U/L (14-36); BILIRUBIN,TOTAL 0.3 mg/dL (0.2-1.3); BLOOD UREA NITROGEN 13 mg/dL (7-20); CALCIUM 9.2 mg/dL (8.4-10.2); CARBON DIOXIDE 20 mmol/L (22-30); CHLORIDE 111 mmol/L (98-107); CREATINE KINASE 73 U/L (30-135); GLUCOSE 96 mg/dL (75-110); POTASSIUM 3.7 mmol/L (3.6-5.0); TOTAL PROTEIN 7.3 g/dL (6.3-8.2)
[2019-11-05 10:57] LABS: CREATINE KINASE MB 0.93 ng/mL (<4.55)
[2019-11-05 11:01] LABS: TROPONIN I < 0.012 ng/mL
[2019-11-05] MEDS ORDERED: KETOROLAC TROMETHAMINE INJ/PF 30 MG/1 ML SDV IV ONE (12:40)
--- NOTE | 2019-11-05 13:07 | ER Document Report ---
Entered by TERRANCE SIDDIQUI SCRIBE 11/05/19 1248 Acting as scribe for:MALCOLM PADGETT MD ED General - General Chief Complaint: Chest Pain Stated Complaint: CHEST PAIN Time Seen by Provider: 11/05/19 12:22 Primary Care Provider: TIMOTHY HUNTER MD [Primary Care Provider] - Follow up as needed Information source: Patient Notes: This 44 year old female patient presents to the emergency department today with complaints of reproducible chest pain which she first noticed this morning at around 6:00 AM when she got to work. Patient describes it as "an elephant sitting on her chest". 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 Patient was given aspirin with no relief, EMS administered 1 sublingual NTG which eased her pain "a little bit", and then a 2nd NTG was administered and this relieved her pain "a little more". Patient complained of diaphoresis, nausea, and shortness of breath as well. TRAVEL OUTSIDE OF THE [place] IN LAST 30 DAYS: No - Related Data Allergies/Adverse Reactions: No Known Allergies Allergy (Verified 11/05/19 10:50) Past Medical History - General Information source: Patient - Social History Smoking Status: Current Every Day Smoker Cigarette use (# per day): Yes Frequency of alcohol use: Occasional Drug Abuse: Marijuana Lives with: Family Family History: Arthritis, CAD, CVA, Hyperlipidemia, Hypertension, Malignancy, Thyroid Disfunction Renal/ Medical History: Reports: Hx Kidney Stones, Hx Ovarian Cysts Past Surgical History: Reports: Hx Cholecystectomy, Hx Hysterectomy, Other - Removal of pilonidal cyst - Immunizations Hx Diphtheria, Pertussis, Tetanus Vaccination: No Review of Systems - Review of Systems Constitutional: See HPI, Diaphoresis EENT: No symptoms reported Cardiovascular: See HPI, Chest pain Respiratory: See HPI, Short of breath Gastrointestinal: See HPI, Nausea. denies: Vomiting Genitourinary: No symptoms reported Female Genitourinary: No symptoms reported Musculoskeletal: No symptoms reported Skin: No symptoms reported Hematologic/Lymphatic: No symptoms reported Neurological/Psychological: No symptoms reported -: Yes All other systems reviewed and negative Physical Exam - Vital signs Vitals: Pulse Ox 100 11/05/19 09:43 - Notes Notes: Physical Exam: General: Alert, appears well. HEENT: Normocephalic. Atraumatic. PERRL. Extraocular movements intact. Oropharynx clear. Neck: Supple. Non-tender. Respiratory: No respiratory distress. Clear and equal breath sounds bilaterally. Reproducible chest pain, mild sternal tenderness with palpation, exquisite left sided parasternal tenderness with palpation. Cardiovascular: Regular rate and rhythm. Abdominal: Normal Inspection. Non-tender. No distension. Normal Bowel Sounds. Back: Exquisite tenderness over the left scapular muscles, mild tenderness over the left trapezius muscle. No gross abnormalities. Extremities: Moves all four extremities. Upper extremities: Normal inspection. Normal ROM. Lower extremities: Normal inspection. No edema. Normal ROM. Neurological: Normal cognition. AAOx4. Normal speech. Psychological: Normal affect. Normal Mood. Skin: Warm. Dry. Normal color. Course - Re-evaluation Re-evalutation: 11/05/19 14:37 Patient reports that her chest and her left scapula muscles do feel better since receiving the Toradol earlier. Serial cardiac enzymes are undetectable. EKG is completely normal. Pain has reproducible pain in the area that the original pain occurred. This does appear to be entirely musculoskeletal without evidence of cardiac component. - Vital Signs Vital signs: Temp Pulse Resp BP Pulse Ox 97.6 F 69 19 106/62 100 11/05/19 10:13 11/05/19 10:13 11/05/19 13:01 11/05/19 13:01 11/05/19 13:01 - Laboratory Result Diagrams: 11/05/19 09:55 11/05/19 09:55 Laboratory results interpreted by me: 11/05/19 09:55 Chloride 111 H Carbon Dioxide 20 L Creatinine 0.51 L - Diagnostic Test Radiology reviewed: Image reviewed, Reports reviewed - Chest x-ray shows no acute radiographic findings - EKG Interpretation by Tx EKG shows normal: Sinus rhythm, Howell, Intervals, QRS Complexes, ST-T Waves Rate: Normal - 74 Rhythm: NSR Discharge - Discharge Clinical Impression: Acute chest wall pain Condition: Stable Disposition: HOME, SELF-CARE Additional Instructions: Chest Wall Pain: Your chest pain has been diagnosed as coming from the chest wall. This is often caused by straining the muscles or joints in the chest during physical activity, direct trauma, coughing, or vigorous vomiting. Persons with arthritis are especially prone to this type of pain, due to inflammation of the cartilage joints near the breast bone. Occasionally, no cause can be found. Rest from strenuous physical activity. This kind of chest pain is usually made worse by movement of the chest. Depending on the symptoms, we may recommend medicine such as Aleve or Ibuprofen for pain and antiinflammatory effects. If the pain is new, and seems to be due to muscle strain, cold packs can help. Otherwise, apply gentle warmth to the painful area for 15 minutes every hour or two. You should contact the doctor immediately if things change. Further evaluation is needed if you develop a fever or cough, if the nature of the pain changes, or if you become short of breath. Take Tylenol and Ibuprofen or Aleve for pain as needed. Limit activities that make the pain worse for the next few days. Follow-up with your primary care provider if not improving. RETURN TO THE EMERGENCY ROOM IF ANY NEW OR WORSENING SYMPTOMS. Referrals: TIMOTHY HUNTER MD [Primary Care Provider] - Follow up as needed I personally performed the services described in the documentation, reviewed and edited the documentation which was dictated to the scribe in my presence, and it accurately records my words and actions.
--- NOTE | 2019-11-05 13:23 | EKG REPORT ---
SEVERITY:- NORMAL ECG - SINUS RHYTHM : Confirmed by: Edvin Loco MD 05-Nov-2019 13:23:14
[2019-11-05 15:11] VITALS: BP 120/70
== END 2019-11-05 15:19 | disposition home or self-care (01) ==
LOC: ER 09:40
DX: R07.89 Other chest pain (principal); R61 Generalized hyperhidrosis; R11.0 Nausea; F17.210 Nicotine dependence, cigarettes, uncomplicated; Z87.442 Personal history of urinary calculi
CPT/HCPCS: 93005; 99285; 96374; 36415; 82553; 82550; 85025; 80053; 84484; 71046; 93010; J1885